=== PATIENT | female | born 1950 | race African-American/Black ===

== ENCOUNTER 2021-08-14 08:44 | Emergency (ER) | payer MEDICARE, MEDICAID ==
[~2021-08-14] VITALS: Ht 162.6 cm; Wt 61.0 kg
[2021-08-14] MEDS ORDERED: IBUPROFEN 600MG TABLET PO ONE (09:15)
[2021-08-14 10:44] VITALS: BP 145/60
[2021-08-14] MEDS ORDERED: IBUPROFEN 600MG TABLET PO NR (10:45)
[2021-08-14] MEDS ORDERED: MOBI7 MT (11:26)
== END 2021-08-14 12:02 | disposition home or self-care (01) ==
LOC: ER 09:05
DX: S70.02XA Contusion of left hip, initial encounter (principal); S70.01XA Contusion of right hip, initial encounter; S50.02XA Contusion of left elbow, initial encounter; S50.01XA Contusion of right elbow, initial encounter; W01.0XXA Fall on same level from slipping, tripping and stumbling without subsequent striking against object, initial encounter; Y93.89 Activity, other specified; Y92.89 Other specified places as the place of occurrence of the external cause; I12.0 Hypertensive chronic kidney disease with stage 5 chronic kidney disease or end stage renal disease; N18.6 End stage renal disease; Z99.2 Dependence on renal dialysis
CPT/HCPCS: 73080; 73521; 99284